=== PATIENT | male | born 1995 | race Caucasian/White ===

== ENCOUNTER 2020-11-07 15:13 | Inpatient (IN) | payer MEDICAID ==
[~2020-11-07] VITALS: Ht 190.5 cm; Wt 83.1 kg
[2020-11-07] MEDS ORDERED: ZOLPIDEM TARTRATE 10 MG TABLET PO PRN (20:15)
[2020-11-07 23:16] VITALS: BP 140/85
[2020-11-08 00:22] VITALS: BP 138/82
[2020-11-08 07:56] LABS: BASOPHILS % (AUTO) 0.8 % (0.0-2.0); EOSINOPHILS % (AUTO) 1.4 % (1.0-6.0); HEMATOCRIT 41.4 % (41-53); HEMOGLOBIN 13.7 g/dL (13.5-17.5); LYMPHOCYTES # (AUTO) 1.5 K/uL (1.0-4.8); LYMPHOCYTES % (AUTO) 30.8 % (22.0-44.0); MEAN CORPUSCULAR HEMOGLOBIN 30.3 pg (26.0-34.0); MEAN CORPUSCULAR HGB CONC 33.2 G/dL (31.0-37.0); MEAN CORPUSCULAR VOLUME 91 fL (80-100); MONOCYTES # (AUTO) 0.3 K/uL (0.1-1.0); PLATELET COUNT (AUTO) 266 K/uL (150-450); RED BLOOD CELL COUNT(AUTO) 4.53 MIL/uL (4.50-5.90); RED CELL DISTRIBUTION WIDTH 13.2 % (11.5-14.5)
[2020-11-08 08:15] LABS: HEMOGLOBIN A1C 5.2 % (3.8-5.6)
[2020-11-08 08:24] LABS: ALANINE AMINOTRANSFERASE 43 U/L (12-78); ALBUMIN 3.7 g/dL (3.4-5.0); ALKALINE PHOSPHATASE 67 U/L (46-116); ANION GAP 7 mmol/L (8-16); ASPARTATE AMINOTRANSFERASE 24 U/L (15-37); BILIRUBIN,TOTAL 0.4 mg/dL (0.1-1.0); CALCIUM, TOTAL 8.8 mg/dL (8.8-10.5); CARBON DIOXIDE 28 mmol/L (22-29); CHLORIDE 106 mmol/L (98-107); CHOL/HDL RATIO 2.6 (4.2-7.3); CHOLESTEROL 123 mg/dL (131-200); CREATININE 0.87 mg/dL (0.60-1.30); FREE T4 (FREE THYROXINE) 1.02 ng/dL (0.76-1.46); GLOMERULAR FILTR. RATE CALC > 60 mL/min (>60); GLUCOSE,RANDOM 108 mg/dL (70-110); HDL CHOLESTEROL 48 mg/dL (40-60); LDL CHOL (CALC.) 65 mg/dL (0-130); POTASSIUM 4.2 mmol/L (3.5-5.1); SODIUM SERUM 141 mmol/L (136-145); THYROID STIMULATING HORMONE 1.66 uIU/mL (0.36-3.74); TOTAL PROTEIN, SERUM 7.2 g/dL (6.4-8.2); TRIGLYCERIDES 51 mg/dL (15-150); UREA NITROGEN, BLOOD 13 mg/dL (7-18)
[2020-11-08 08:33] VITALS: BP 109/67
[2020-11-08] MEDS: NICOTINE 14 MG/24 HOUR PATCH TD SCH (08:49)
[2020-11-08] MEDS: OLANZapine 5 MG TABLET PO SCH ×2 (10:59→17:22)
[2020-11-08] MEDS: BENZTROPINE MESYLATE 1 MG TABLET PO SCH ×2 (10:59→17:22)
[2020-11-08] MEDS ORDERED: IBUPROFEN 400 MG TABLET PO PRN (16:15)
[2020-11-08] MEDS ORDERED: NICOTINE 14 MG/24 HOUR PATCH TD PRN (16:15)
[2020-11-08] MEDS ORDERED: DOCUSATE SODIUM 100 MG CAPSULE PO PRN (16:15)
[2020-11-08] MEDS ORDERED: MAG HYDROX/AL HYDROX/SIMETH ES 30 ML SUSPENSION UDCUP PO PRN (16:15)
[2020-11-08] MEDS ORDERED: MAGNESIUM HYDROXIDE SUSPENSION 30 ML UDCUP PO PRN (16:15)
[2020-11-08] MEDS ORDERED: ONDANSETRON HCL 4 MG TABLET PO PRN (16:15)
[2020-11-08] MEDS ORDERED: LOPERAMIDE HCL 2 MG CAPSULE PO PRN (16:15)
[2020-11-08] MEDS ORDERED: ALBUTEROL SULFATE HFA 90 MCG/PUFF 8 GM INHALER IH PRN (16:15)
[2020-11-08] MEDS ORDERED: PETROLATUM,WHITE 28 GM JELLY TP PRN (16:15)
[2020-11-08] MEDS ORDERED: CloNIDine HCL 0.1 MG TABLET PO PRN (16:15)
[2020-11-08] MEDS ORDERED: ACETAMINOPHEN 325 MG TABLET PO PRN (16:15)
[2020-11-08] MEDS ORDERED: GuaiFENesin/D-METHORPHAN [SUGAR-FREE] 200-20MG/10 ML SYRUP UDCUP PO PRN (16:15)
[2020-11-08 22:23] VITALS: BP 110/63
[2020-11-09 06:32] VITALS: BP 128/80
[2020-11-09 07:51] LABS: AMPHET/METH SCREEN,URINE NEGATIVE (NEGATIVE); BARBITURATE SCREEN, URINE NEGATIVE (NEGATIVE); BENZODIAZEPINES SCREEN,URINE NEGATIVE (NEGATIVE); CANNABINOID SCREEN,URINE POSITIVE (NEGATIVE); COCAINE SCREEN,URINE NEGATIVE (NEGATIVE); METHADONE SCREEN, URINE NEGATIVE (NEGATIVE); OPIATE SCREEN,URINE NEGATIVE (NEGATIVE)
[2020-11-09 07:53] LABS: PHENCYCLIDINE SCREEN,URINE NEGATIVE (NEGATIVE)
[2020-11-09 08:23] VITALS: BP 139/80
[2020-11-09 08:32] LABS: APPEARANCE,URINE CLEAR (CLEAR); BILIRUBIN,URINE NEGATIVE (NEGATIVE); GLUCOSE, URINE (UA) NEGATIVE (NEGATIVE); KETONES,URINE NEGATIVE (NEGATIVE); LEUKOCYTE ESTERASE ,URINE NEGATIVE (NEGATIVE); NITRATE,URINE NEGATIVE (NEGATIVE); OCCULT BLOOD,URINE NEGATIVE (NEGATIVE); PH,URINE 7.5 (5.0-8.0); PROTEIN,URINE NEGATIVE (NEGATIVE); UROBILINOGEN,URINE 0.2 mg/dL (<=1.0)
[2020-11-09] MEDS: OLANZapine 5 MG TABLET PO SCH ×3 (08:35→16:54)
[2020-11-09] MEDS: BENZTROPINE MESYLATE 1 MG TABLET PO SCH ×2 (08:35→16:54)
[2020-11-09] MEDS: NICOTINE 14 MG/24 HOUR PATCH TD SCH (08:35)
[2020-11-09] MEDS: LORazepam 2 MG TABLET PO PRN ×2 (09:45→16:54)
[2020-11-09] MEDS: HALOPERIDOL 5 MG TABLET PO PRN ×2 (09:45→16:54)
[2020-11-09 16:11] VITALS: BP 102/71
[2020-11-10 03:49] VITALS: BP 109/80
[2020-11-10] MEDS: BENZTROPINE MESYLATE 1 MG TABLET PO SCH ×2 (08:25→16:09)
[2020-11-10] MEDS: LORazepam 2 MG TABLET PO PRN ×2 (08:25→16:09)
[2020-11-10] MEDS: NICOTINE 14 MG/24 HOUR PATCH TD SCH (08:25)
[2020-11-10] MEDS: HALOPERIDOL 5 MG TABLET PO PRN ×2 (08:26→16:09)
[2020-11-10] MEDS: OLANZapine 5 MG TABLET PO SCH ×2 (08:26→16:09)
[2020-11-10 09:01] VITALS: BP 143/81
[2020-11-10] MEDS: OMEPRAZOLE 20 MG CAPSULE PO SCH (14:36)
[2020-11-10 16:01] VITALS: BP 143/86
[2020-11-11 01:53] VITALS: BP 137/88
[2020-11-11] MEDS: OLANZapine 5 MG TABLET PO SCH (08:10)
[2020-11-11] MEDS: OMEPRAZOLE 20 MG CAPSULE PO SCH (08:11)
[2020-11-11] MEDS: BENZTROPINE MESYLATE 1 MG TABLET PO SCH (08:11)
[2020-11-11] MEDS: NICOTINE 14 MG/24 HOUR PATCH TD SCH (08:11)
[2020-11-11] MEDS: LORazepam 2 MG TABLET PO PRN (08:12)
[2020-11-11 08:34] VITALS: BP 139/87
[2020-11-11] MEDS ORDERED: MUPIROCIN CALCIUM 2% 22 GM OINTMENT NASAL SCH (09:00)
[2020-11-11] MEDS ORDERED: OLAN5TAB2 PO (12:34)
[2020-11-11] MEDS ORDERED: BENZ1TAB10 PO (12:34)
== END 2020-11-11 13:57 | disposition home or self-care (01) | DRG 753 ==
LOC: B3A 20:08
PROVIDERS: ADMIT Psychiatry & Neurology Psychiatry; ATTEND Psychiatry & Neurology Psychiatry
DX: F31.9 Bipolar disorder, unspecified (principal); F10.10 Alcohol abuse, uncomplicated; F17.210 Nicotine dependence, cigarettes, uncomplicated; Z59.0 Homelessness; Z91.5 Personal history of self-harm; Y90.9 Presence of alcohol in blood, level not specified; G44.209 Tension-type headache, unspecified, not intractable
CPT/HCPCS: 80307; 83036; 84439; 84443; 87081

== ENCOUNTER 2020-12-01 12:24 | Emergency (ER) | payer MEDICAID, OTHER ==
[~2020-12-01] VITALS: Ht 167.6 cm; Wt 77.3 kg
[~2020-12-01 12:24] MED LIST: BENZ1TAB10 PO; OLAN5TAB2 PO
[2020-12-01] MEDS ORDERED: ACETAMINOPHEN 500 MG TABLET PO ONE (13:15)
[2020-12-01] MEDS ORDERED: FAMOTIDINE 20 MG TABLET PO ONE (13:15)
[2020-12-01] MEDS ORDERED: MAG HYDROX/AL HYDROX/SIMETH 30 ML SUSP UDCUP PO ONE (13:15)
[2020-12-01 13:39] LABS: BASOPHILS % (AUTO) 0.6 % (0.0-2.0); EOSINOPHILS % (AUTO) 0.8 % (1.0-6.0); HEMOGLOBIN 14.6 g/dL (13.5-17.5); LYMPHOCYTES # (AUTO) 2.3 K/uL (1.0-4.8); LYMPHOCYTES % (AUTO) 27.2 % (22.0-44.0); MEAN CORPUSCULAR HEMOGLOBIN 30.6 pg (26.0-34.0); MEAN CORPUSCULAR HGB CONC 33.9 G/dL (31.0-37.0); MEAN CORPUSCULAR VOLUME 90 fL (80-100); MONOCYTES # (AUTO) 0.7 K/uL (0.1-1.0); MONOCYTES % (AUTO) 7.9 % (2.0-9.0); NEUTROPHILS # (AUTO) 5.3 K/uL (1.8-7.7); NEUTROPHILS % (AUTO) 63.5 % (40.0-70.0); PLATELET COUNT (AUTO) 305 K/uL (150-450); RED BLOOD CELL COUNT(AUTO) 4.78 MIL/uL (4.50-5.90); RED CELL DISTRIBUTION WIDTH 13.5 % (11.5-14.5)
[2020-12-01 13:47] LABS: ANION GAP 12 mmol/L (8-16); CALCIUM, TOTAL 9.1 mg/dL (8.8-10.5); CARBON DIOXIDE 27 mmol/L (22-29); CHLORIDE 98 mmol/L (98-107); CREATININE 0.89 mg/dL (0.60-1.30); GLOMERULAR FILTR. RATE CALC > 60 mL/min (>60); GLUCOSE,RANDOM 90 mg/dL (70-110); POTASSIUM 4.1 mmol/L (3.5-5.1); SODIUM SERUM 137 mmol/L (136-145); UREA NITROGEN, BLOOD 10 mg/dL (7-18)
[2020-12-01 13:53] LABS: ALANINE AMINOTRANSFERASE 28 U/L (12-78); ALBUMIN 4.6 g/dL (3.4-5.0); ALKALINE PHOSPHATASE 77 U/L (46-116); ASPARTATE AMINOTRANSFERASE 17 U/L (15-37); BILIRUBIN,TOTAL 0.7 mg/dL (0.1-1.0); LIPASE 95 U/L (73-393); TOTAL PROTEIN, SERUM 7.9 g/dL (6.4-8.2)
[2020-12-01 14:36] VITALS: BP 132/70
== END 2020-12-01 15:56 | disposition home or self-care (01) ==
LOC: EMS 12:26
DX: R10.13 Epigastric pain (principal); R11.0 Nausea; F31.9 Bipolar disorder, unspecified; F20.9 Schizophrenia, unspecified; F17.210 Nicotine dependence, cigarettes, uncomplicated; F12.90 Cannabis use, unspecified, uncomplicated
CPT/HCPCS: 36415; 76700; 80053; 83690; 85025; 99284; G0480